=== PATIENT | female | born 1970 | race Caucasian/White ===

== ENCOUNTER 2017-12-05 13:41 | Emergency (ER) | payer OTHER ==
[~2017-12-05] VITALS: Ht 160 cm; Wt 61.2 kg
[2017-12-05 14:42] VITALS: BP 162/88
[2017-12-05] MEDS ORDERED: KETOROLAC 30 MG/ML VIAL IM ONE (15:45)
--- NOTE | 2017-12-05 15:51 | NUR ---
PATIENT PRESENT WITH C/O RIGHT ANKLE PAIN SINCE LAST NIGHT. PATIENT BROUGHT IN A WHEELCHAIR. PATIENT STATES SHE GOT UP AND FELL ONTO HER RIGHT ANKLE. PATIENT C/O 5/10. SKIN WARM TO TOUCH. DRY. PEDAL PULSE PRESENT. NOTED MILD BRUISING AND SWELLING TO RIGHT ANKLE. CIRCULATION TENDER AT BEDSIDE TO EVALUATE PATIENT.
[2017-12-05 16:59] VITALS: BP 146/93
== END 2017-12-05 17:00 | disposition home or self-care (01) ==
LOC: MED 13:41
DX: S93.401A Sprain of unspecified ligament of right ankle, initial encounter (principal); Z88.0 Allergy status to penicillin; X50.1XXA Overexertion from prolonged static or awkward postures, initial encounter; Y93.89 Activity, other specified; Y92.89 Other specified places as the place of occurrence of the external cause; Y99.8 Other external cause status
CPT/HCPCS: 29515; 73610; 96372; 99284; J1885

== ENCOUNTER 2023-08-24 12:12 | Emergency (ER) | payer OTHER ==
[~2023-08-24] VITALS: Ht 152.4 cm; Wt 71.7 kg
[2023-08-24 12:29] VITALS: BP 124/78; PULSE 102; RESP 18; TEMP 98.9; O2SAT 96
[2023-08-24] MEDS ORDERED: FAMOTIDINE 20 MG/2 ML VIAL IVP ONE (13:10)
[2023-08-24] MEDS ORDERED: NACL 0.9% 1,000 ML IV ONE (13:10)
[2023-08-24 13:46] LABS: BASOPHILS # (AUTO) 0.1 K/uL (0.00-0.22); BASOPHILS % (AUTO) 0.7 % (0.0-2.0); EOSINOPHILS # (AUTO) 0.4 K/uL (0-0.4); EOSINOPHILS % (AUTO) 4.1 % (0.0-4.0); HEMATOCRIT 38.3 % (36-48); HEMOGLOBIN 12.8 g/dL (12.0-16.0); LYMPHOCYTES # (AUTO) 2.2 K/uL (2.5-16.5); LYMPHOCYTES % (AUTO) 23.1 % (20.5-51.1); MEAN CORPUSCULAR HEMOGLOBIN 27 pg (27-31); MEAN CORPUSCULAR HGB CONC 33 g/dL (33-37); MONOCYTES # (AUTO) 0.7 K/uL (0.8-1.0); MONOCYTES % (AUTO) 7.1 % (1.7-9.3); NEUTROPHILS # (AUTO) 6.2 K/uL (1.8-7.7); PLATELET COUNT (AUTO) 371 K/uL (140-450); RED BLOOD CELL COUNT(AUTO) 4.73 MIL/uL (4.20-5.40); RED CELL DISTRIBUTION WIDTH 15.4 % (11.6-13.7); WHITE BLOOD COUNT (AUTO) 9.5 K/uL (4.8-10.8)
[2023-08-24 14:00] LABS: ALBUMIN 3.3 g/dL (3.4-5.0); ANION GAP 8.5 (8-16); CALCIUM 8.8 mg/dL (8.5-10.1); CARBON DIOXIDE 28.6 mmol/L (21-32); CREATININE 0.7 mg/dL (0.6-1.3); POTASSIUM 4.1 mmol/L (3.5-5.1); TOTAL BILIRUBIN 0.2 mg/dL (0.0-1.0); TOTAL PROTEIN, SERUM 7.3 g/dL (6.4-8.2)
[2023-08-24 14:05] VITALS: BP 136/86; PULSE 75; RESP 16; TEMP 98.9
[2023-08-24 15:18] VITALS: O2SAT 99
[2023-08-24] MEDS ORDERED: NAPR-1704 PO (15:26)
[2023-08-24] MEDS ORDERED: ACET-10509 PO (15:26)
[2023-08-24] MEDS ORDERED: LID5T TP (15:27)
== END 2023-08-24 15:42 | disposition home or self-care (01) ==
LOC: MED 12:12
DX: S29.011A Strain of muscle and tendon of front wall of thorax, initial encounter (principal); J45.909 Unspecified asthma, uncomplicated; Z88.0 Allergy status to penicillin; Z79.899 Other long term (current) drug therapy; X58.XXXA Exposure to other specified factors, initial encounter; Y93.89 Activity, other specified; Y92.89 Other specified places as the place of occurrence of the external cause; Y99.8 Other external cause status
CPT/HCPCS: 36415; 71045; 80053; 83690; 84484; 85025; 93005; 96361; 96374; 99285; J3490; J7030

== ENCOUNTER 2024-06-10 02:15 | Emergency (ER) | payer OTHER ==
[~2024-06-10] VITALS: Ht 160 cm; Wt 65.8 kg
[~2024-06-10 02:15] MED LIST: ACET-10509 PO; LID5T TP; NAPR-1704 PO
[2024-06-10 02:18] VITALS: BP 175/95; PULSE 92; RESP 15; TEMP 98.1; O2SAT 97
[2024-06-10 03:00] LABS: BASOPHILS # (AUTO) 0.1 K/uL (0.00-0.22); BASOPHILS % (AUTO) 0.9 % (0.0-2.0); EOSINOPHILS # (AUTO) 0.3 K/uL (0-0.4); EOSINOPHILS % (AUTO) 2.8 % (0.0-4.0); HEMATOCRIT 40.9 % (36-48); HEMOGLOBIN 13.4 g/dL (12.0-16.0); LYMPHOCYTES # (AUTO) 2.3 K/uL (2.5-16.5); LYMPHOCYTES % (AUTO) 19.1 % (20.5-51.1); MEAN CORPUSCULAR HEMOGLOBIN 27 pg (27-31); MEAN CORPUSCULAR HGB CONC 33 g/dL (33-37); MEAN CORPUSCULAR VOLUME 81.6 fL (80-94); MONOCYTES # (AUTO) 0.5 K/uL (0.8-1.0); MONOCYTES % (AUTO) 4.5 % (1.7-9.3); NEUTROPHILS # (AUTO) 8.7 K/uL (1.8-7.7); NEUTROPHILS % (AUTO) 72.7 % (42.2-75.2); PLATELET COUNT (AUTO) 366 K/uL (140-450); RED BLOOD CELL COUNT(AUTO) 5.01 MIL/uL (4.20-5.40); RED CELL DISTRIBUTION WIDTH 14.8 % (11.6-13.7); WHITE BLOOD COUNT (AUTO) 11.9 K/uL (4.8-10.8)
[2024-06-10 03:01] LABS: BILIRUBIN,URINE NEGATIVE (NEGATIVE); BLOOD, URINE NEGATIVE (NEGATIVE); COLOR,URINE YELLOW (YELLOW); LEUKOCYTE ESTERASE ,URINE 1+ (NEGATIVE); NITRITE, URINE NEGATIVE (NEGATIVE); PROTEIN,URINE NEGATIVE (NEGATIVE); UGLUCOSE NEGATIVE (NEGATIVE); UROBILINOGEN,URINE 0.2 EU/dL (0.2 - 1)
[2024-06-10 03:03] LABS: APPEARANCE,URINE HAZY (CLEAR)
[2024-06-10 03:07] LABS: BACTERIA,URINE 1+ /HPF (None Seen); MUCUS,URINE None Seen /LPF (None Seen); RBC,URINE 0 /HPF (0-5); SQUAMOUS EPITHELIAL CELL,UR 0-3 (FEW) /LPF (0-3 (FEW)); WBC,URINE 0-5 /HPF (0-5)
[2024-06-10 03:10] LABS: ANION GAP 10.2 (8-16); CALCIUM 9.3 mg/dL (8.5-10.1); CARBON DIOXIDE 29.6 mmol/L (21-32); CREATININE 0.8 mg/dL (0.6-1.3); POTASSIUM 3.8 mmol/L (3.5-5.1)
[2024-06-10 03:26] LABS: ALBUMIN 3.5 g/dL (3.4-5.0); BILIRUBIN,DIRECT 0.1 mg/dL (0.0-0.3); TOTAL BILIRUBIN 0.4 mg/dL (0.0-1.0)
[2024-06-10] MEDS ORDERED: DICYCLOMINE HCL LIQUID 10 MG/5 ML UDC ONE (03:27)
[2024-06-10] MEDS ORDERED: ALUMINUM HYD/MAG/SIMETHICONE 30 ML UDC ONE (03:27)
[2024-06-10] MEDS: ONDANSETRON 4 MG/2 ML VIAL IVP ONE (03:51)
[2024-06-10] MEDS: DICYCLOMINE HCL LIQUID 20 MG, ALUMINUM HYD/MAG/SIMETHICONE 30 ML, LIDOCAINE VISCOUS 2% ... PO ONE (03:51)
[2024-06-10] MEDS: NACL 0.9% 1,000 ML IV ONE (03:54)
[2024-06-10] MEDS: KETOROLAC 30 MG/ML VIAL IVP ONE (04:08)
[2024-06-10] MEDS ORDERED: SUCR1TAB56 PO (08:58)
[2024-06-10] MEDS ORDERED: FAMO-92 PO (08:58)
[2024-06-10] MEDS ORDERED: TRAM50TA3 PO (09:12)
[2024-06-10 09:15] VITALS: BP 132/72; PULSE 74; RESP 16; TEMP 98.2; O2SAT 98
== END 2024-06-10 09:15 | disposition home or self-care (01) ==
LOC: MED 02:15
DX: K44.9 Diaphragmatic hernia without obstruction or gangrene (principal); K21.9 Gastro-esophageal reflux disease without esophagitis; J45.909 Unspecified asthma, uncomplicated; Z79.899 Other long term (current) drug therapy; Z88.0 Allergy status to penicillin
CPT/HCPCS: 36415; 71045; 74176; 80048; 80076; 81001; 83690; 84484; 85025; 87086; 93005; 96361; 96374; 96375; 99285; J1885; J2405; J7030; Q0092; 87186

== ENCOUNTER 2024-07-14 07:10 | Emergency (ER) | payer OTHER ==
[~2024-07-14] VITALS: Ht 160 cm; Wt 69.9 kg
[~2024-07-14 07:10] MED LIST changes: -ACET-10509 PO; +ACET500T99 PO; +FAMO-92 PO; +SUCR1TAB56 PO; +TRAM50TA3 PO
[2024-07-14 07:14] VITALS: BP 147/93; PULSE 111; RESP 14; TEMP 98.6; O2SAT 99
[2024-07-14 08:02] LABS: APPEARANCE,URINE CLEAR (CLEAR); BILIRUBIN,URINE 1+ (NEGATIVE); BLOOD, URINE NEGATIVE (NEGATIVE); COLOR,URINE YELLOW (YELLOW); LEUKOCYTE ESTERASE ,URINE NEGATIVE (NEGATIVE); NITRITE, URINE NEGATIVE (NEGATIVE); PROTEIN,URINE TRACE (NEGATIVE); UGLUCOSE NEGATIVE (NEGATIVE); UROBILINOGEN,URINE 0.2 EU/dL (0.2 - 1)
[2024-07-14 08:07] LABS: ICTOTEST NEGATIVE (NEGATIVE)
[2024-07-14 08:44] LABS: BASOPHILS # (AUTO) 0.1 K/uL (0.00-0.22); EOSINOPHILS # (AUTO) 0.2 K/uL (0-0.4); EOSINOPHILS % (AUTO) 1.3 % (0.0-4.0); HEMATOCRIT 42.9 % (36-48); HEMOGLOBIN 14.2 g/dL (12.0-16.0); LYMPHOCYTES # (AUTO) 2.1 K/uL (2.5-16.5); LYMPHOCYTES % (AUTO) 17.6 % (20.5-51.1); MEAN CORPUSCULAR HEMOGLOBIN 27 pg (27-31); MEAN CORPUSCULAR HGB CONC 33 g/dL (33-37); MEAN CORPUSCULAR VOLUME 81.6 fL (80-94); MONOCYTES # (AUTO) 0.7 K/uL (0.8-1.0); MONOCYTES % (AUTO) 6.2 % (1.7-9.3); NEUTROPHILS # (AUTO) 8.8 K/uL (1.8-7.7); NEUTROPHILS % (AUTO) 73.9 % (42.2-75.2); PLATELET COUNT (AUTO) 395 K/uL (140-450); RED BLOOD CELL COUNT(AUTO) 5.26 MIL/uL (4.20-5.40); RED CELL DISTRIBUTION WIDTH 14.9 % (11.6-13.7); WHITE BLOOD COUNT (AUTO) 11.9 K/uL (4.8-10.8)
[2024-07-14 08:52] LABS: CALCIUM 9.4 mg/dL (8.5-10.1); CREATININE 0.7 mg/dL (0.6-1.3); POTASSIUM 3.8 mmol/L (3.5-5.1)
[2024-07-14 08:56] LABS: ANION GAP 14.5 (8-16); CARBON DIOXIDE 24.3 mmol/L (21-32)
[2024-07-14 09:00] LABS: ALBUMIN 3.7 g/dL (3.4-5.0); BILIRUBIN,DIRECT 0.1 mg/dL (0.0-0.3); TOTAL BILIRUBIN 0.4 mg/dL (0.0-1.0); TOTAL PROTEIN, SERUM 8.5 g/dL (6.4-8.2)
[2024-07-14] MEDS ORDERED: KETOROLAC 30 MG/ML VIAL ONE (09:05)
[2024-07-14] MEDS ORDERED: METOCLOPRAMIDE 10 MG/2 ML INJ VIAL ONE (09:06)
[2024-07-14] MEDS: NACL 0.9% 1,000 ML IV SCH (09:07)
[2024-07-14] MEDS: METOCLOPRAMIDE 10 MG/2 ML INJ VIAL IVP ONE (09:08)
[2024-07-14] MEDS: KETOROLAC 30 MG/ML VIAL IVP ONE (09:10)
[2024-07-14] MEDS ORDERED: ALUMINUM HYD/MAG/SIMETHICONE 30 ML UDC ONE (09:16)
[2024-07-14] MEDS ORDERED: DICYCLOMINE HCL LIQUID 10 MG/5 ML UDC ONE (09:16)
[2024-07-14] MEDS: DICYCLOMINE HCL LIQUID 20 MG, ALUMINUM HYD/MAG/SIMETHICONE 30 ML, LIDOCAINE VISCOUS 2% ... PO ONE (09:17)
[2024-07-14] MEDS ORDERED: SUCR1SUS7 PO (11:21)
[2024-07-14] MEDS ORDERED: METO-485 PO (11:21)
[2024-07-14 12:15] VITALS: BP 119/73; PULSE 88; RESP 20; TEMP 98.3; O2SAT 98
== END 2024-07-14 12:15 | disposition home or self-care (01) ==
LOC: MED 07:10
DX: R07.89 Other chest pain (principal); K21.9 Gastro-esophageal reflux disease without esophagitis; K44.9 Diaphragmatic hernia without obstruction or gangrene; J45.909 Unspecified asthma, uncomplicated; Z79.899 Other long term (current) drug therapy; Z88.0 Allergy status to penicillin
CPT/HCPCS: 36415; 71045; 74176; 76705; 80048; 80076; 81003; 83690; 84484; 85025; 85379; 93005; 96361; 96374; 96375; 99285; J1885; J2765; J7030; Q0092

== ENCOUNTER 2024-07-29 07:37 | Emergency (ER) | payer OTHER ==
[~2024-07-29] VITALS: Ht 152.4 cm; Wt 71.7 kg
[~2024-07-29 07:37] MED LIST changes: +METO-485 PO; +SUCR1SUS7 PO
[2024-07-29 07:39] VITALS: BP 174/87; PULSE 86; RESP 18; TEMP 98.6; O2SAT 98
[2024-07-29] MEDS ORDERED: DICYCLOMINE HCL LIQUID 10 MG/5 ML UDC ONE (08:25)
[2024-07-29] MEDS ORDERED: ALUMINUM HYD/MAG/SIMETHICONE 30 ML UDC ONE (08:25)
[2024-07-29] MEDS: KETOROLAC 60 MG/2 ML VIAL IM ONE (08:27)
[2024-07-29] MEDS: DICYCLOMINE HCL LIQUID 20 MG, ALUMINUM HYD/MAG/SIMETHICONE 30 ML, LIDOCAINE VISCOUS 2% ... PO ONE (08:27)
[2024-07-29] MEDS: ONDANSETRON 4 MG ODT PO ONE (08:29)
[2024-07-29] MEDS ORDERED: ACET-8905 PO (11:38)
[2024-07-29] MEDS ORDERED: ONDA8TAB87 PO (11:38)
[2024-07-29] MEDS ORDERED: IBUP-2213 PO (11:38)
[2024-07-29] MEDS ORDERED: OMEP40EC23 PO (11:38)
[2024-07-29] MEDS ORDERED: SUCR1ORA4 PO (11:58)
[2024-07-29] MEDS ORDERED: MAG-27 PO (11:58)
[2024-07-29 11:59] VITALS: BP 123/68; PULSE 72; RESP 16; TEMP 98; O2SAT 98
== END 2024-07-29 12:00 | disposition home or self-care (01) ==
LOC: MED 07:37
DX: R10.13 Epigastric pain (principal); R11.2 Nausea with vomiting, unspecified; R03.0 Elevated blood-pressure reading, without diagnosis of hypertension; J45.909 Unspecified asthma, uncomplicated; K21.9 Gastro-esophageal reflux disease without esophagitis; Z98.51 Tubal ligation status; Z79.899 Other long term (current) drug therapy; Z88.0 Allergy status to penicillin
CPT/HCPCS: 71045; 96372; 99284; J1885; Q0162